=== PATIENT | female | born 1975 | race Caucasian/White ===

== ENCOUNTER 2016-12-29 06:49 | Day surgery (SDC) | payer MEDICARE ==
[~2016-12-29] VITALS: Ht 160 cm; Wt 54.4 kg
[~2016-12-29 06:49] MED LIST: ORTHO CYCLEN1 TABLET PO
[2016-12-29 07:47] VITALS: BP 105/68
[2016-12-29 09:18] LABS: ADD MIUA? YES; BILIRUBIN NEGATIVE; BLOOD MODERATE; COLOR YELLOW ((YELLOW)); GLUCOSE (STRIP) NEGATIVE; KETONES NEGATIVE; LEUKOCYTES SMALL; NITRITE NEGATIVE; PROTEIN (STRIP) NEGATIVE
[2016-12-29 09:43] LABS: BACTERIA RARE /HPF; EPITHELIAL CELLS 2+ /HPF; MUCUS 4+ /LPF; RED BLOOD CELLS 0-5 /HPF (0-5); UCUL ADDED? YES
[2016-12-29 10:31] VITALS: BP 99/58
[2016-12-29 11:21] VITALS: BP 107/64
[2017-01-04 10:32] LABS: INTERNAL CONTROL VALID? YES
== END 2016-12-29 11:28 | disposition home or self-care (01) ==
LOC: SDC 06:49
PROVIDERS: Obstetrics & Gynecology
PROC: 0UQC7ZZ Repair Cervix, Via Natural or Artificial Opening (ICD-10-PCS; principal; 2016-12-29)
DX: N93.0 Postcoital and contact bleeding (principal)
CPT/HCPCS: 81003; 84703; 87086; J2405; J3010